=== PATIENT | female | born 1955 | race Caucasian/White ===

== ENCOUNTER 2016-12-23 10:14 | Emergency (ER) | payer BC ==
[2016-12-23 12:03] VITALS: BP 129/73
--- NOTE | 2016-12-23 12:15 | UC ---
Throat Pain/Nasal Jeff HPI - HPI Summary HPI Summary: sinus pressure, headache, nasal congestion, cough with yellow sputum, flecks of blood in sputum (which pt thinks are from her dry nose). No fever. Has seasonal allergies. No relief with netti pot. Sxs since 12/20/16 - History of Current Complaint Chief Complaint: UCRespiratory Stated Complaint: SINUS PRESSURE Time Seen by Provider: 12/23/16 12:14 Hx Obtained From: Patient Hx Last Menstrual Period: n/a Onset/Duration: Gradual Onset, Lasting Days, Still Present Severity: Moderate Pain Intensity: 1 Pain Scale Used: 0-10 Numeric Cough: Productive - yellow Associated Signs & Symptoms: Positive: Sinus Discomfort, Nasal Discharge, Rash - on nose and lip for 3 years, no change Related History: Seasonal Allergies - Epiglottits Risk Factors Epiglottis Risk Factors: Negative - Allergies/Home Medications Allergies/Adverse Reactions: Allergies Allergy/AdvReac Type Severity Reaction Status Date / Time No Known Allergies Allergy Verified 12/23/16 12:03 Home Medications: Home Medications Nystatin CREAM* 1 applic TOPICAL BID 12/23/16 [History Confirmed 12/23/16] metFORMIN* [Glucophage*] 500 mg PO DAILY 12/23/16 [History Confirmed 12/23/16] PMH/Surg Hx/FS Hx/Imm Hx Endocrine History Of: Reports: Diabetes Cardiovascular History Of: Denies: Cardiac Disorders Respiratory History Of: Denies: Asthma - Surgical History Surgical History: Yes Surgery Procedure, Year, and Place: hemorrhoidectomy 05/2012 - Family History Known Family History: Positive: Hypertension - Social History Occupation: Employed Full-time Lives: With Family Alcohol Use: None Substance Use Type: None Smoking Status (MU): Former Smoker Type: Cigarettes Amount Used/How Often: 2 CIGS A DAY Have You Smoked in the Last Year: No When Did the Patient Quit Smoking/Using Tobacco: OCT, 2014 Review of Systems Constitutional: Negative Skin: Rash - chronic Eyes: Negative ENT: Other - sinus pressure Respiratory: Cough Cardiovascular: Negative Gastrointestinal: Negative Genitourinary: Negative Motor: Negative Neurovascular: Negative Musculoskeletal: Negative Neurological: Negative Psychological: Negative All Other Systems Reviewed And Are Negative: Yes Physical Exam Triage Information Reviewed: Yes Appearance: Well-Nourished, Ill-Appearing, Pain Distress Vital Signs: Initial Vital Signs Temp 98.6 F 12/23/16 11:56 Pulse 78 01/22/17 11:56 Resp 16 12/23/16 11:56 BP 129/73 12/23/16 11:56 Pulse Ox 97 12/23/16 11:56 Vital Signs Reviewed: Yes Eyes: Positive: Conjunctiva Clear ENT: Positive: Pharyngeal erythema, TMs normal, Other: - nasal turbinate swelling bilat, sinus tenderness frontal and maxillary Neck: Positive: Supple, Nontender, No Lymphadenopathy Respiratory: Positive: Lungs clear, Normal breath sounds, No respiratory distress Cardiovascular: Positive: RRR, No Murmur, Pulses Normal, Brisk Capillary Refill Musculoskeletal: Positive: Strength Intact, ROM Intact Neurological: Positive: Alert, Muscle Tone Normal Psychological Exam: Normal Skin Exam: Normal Throat Pain/Nasal Course/Dx - Differential Dx/Diagnosis Differential Diagnosis/HQI/PQRI: Influenza, Pharyngitis, Sinusitis, URI Provider Diagnoses: sinusitis Discharge - Discharge Plan Condition: Stable Disposition: HOME Prescriptions: Amoxicillin/Clavulanate TAB* [Augmentin TAB 875*] 875 mg PO BID #20 tab Fluticasone NASAL SPRAY 50MCG* [Flonase NASAL SPRAY 50MCG*] 2 spray BOTH NARES DAILY #1 btl Patient Education Materials: Sinusitis (ED) Referrals: Markus Seo DO [Primary Care Provider] -
== END 2016-12-23 12:57 | disposition home or self-care (01) ==
LOC: UCCORT 10:14
DX: J32.9 Chronic sinusitis, unspecified (principal); E11.9 Type 2 diabetes mellitus without complications; Z79.84 Long term (current) use of oral hypoglycemic drugs; Z87.891 Personal history of nicotine dependence
CPT/HCPCS: 99212; G0463

== ENCOUNTER 2017-03-10 10:48 | Emergency (ER) | payer BC ==
[2017-03-10 13:23] VITALS: BP 115/87
--- NOTE | 2017-03-10 13:53 | UC ---
FLU HPI - HPI Summary HPI Summary: Pt presents with c/o of nasal congestion, dry hacking cough that began suddenly after exposure to "very perfumed" air 2 days ago. Pt reports that she has seasonal allergies but has not been taking her daily antihistamine. cough worsens with recumbent position, - History of Current Complaint Chief Complaint: UCRespiratory Stated Complaint: CONGESTION,COUGH Time Seen by Provider: 03/10/17 13:09 Hx Obtained From: Patient Hx Last Menstrual Period: n/a ?: No Onset/Duration: Sudden Onset, Lasting Days Severity Currently: Mild Severity Initially: Mild Associated Signs & Symptoms: Positive: Myalgia, Cough, Nasal Congestion - Allergy/Home Medications Allergies/Adverse Reactions: Allergies Allergy/AdvReac Type Severity Reaction Status Date / Time environmental Allergy Congestion Uncoded 03/10/17 13:23 Home Medications: Home Medications Chromium Picolinate 200 mcg PO QPM 03/10/17 [History Confirmed 03/10/17] PMH/Surg Hx/FS Hx/Imm Hx Previously Healthy: Yes Endocrine History Of: Reports: Diabetes - po meds Cardiovascular History Of: Denies: Cardiac Disorders Respiratory History Of: Denies: Asthma - Surgical History Surgical History: Yes Surgery Procedure, Year, and Place: hemorrhoidectomy 05/2012 - Family History Known Family History: Positive: Hypertension - Social History Lives: With Family Alcohol Use: None Substance Use Type: None Smoking Status (MU): Former Smoker Type: Cigarettes Amount Used/How Often: 2 CIGS A DAY Have You Smoked in the Last Year: No When Did the Patient Quit Smoking/Using Tobacco: OCT, 2014 Review of Systems Constitutional: Fatigue Skin: Negative Eyes: Negative ENT: Negative, Other - nasal congestion, PND Respiratory: Cough Cardiovascular: Negative Gastrointestinal: Negative Genitourinary: Negative Motor: Negative Neurovascular: Negative Musculoskeletal: Negative Neurological: Negative Psychological: Negative All Other Systems Reviewed And Are Negative: Yes Physical Exam Triage Information Reviewed: Yes Vital Signs: Initial Vital Signs Temp 99.3 F 03/10/17 13:17 Pulse 85 03/10/17 13:17 Resp 18 03/10/17 13:17 BP 115/87 03/10/17 13:17 Pulse Ox 98 03/10/17 13:17 Eye Exam: Normal ENT: Positive: TMs normal - bilateral, clear fluid Neck exam: Normal Respiratory Exam: Normal Respiratory: Positive: Other: - cough with deep inhalation Cardiovascular Exam: Normal Musculoskeletal Exam: Normal Neurological Exam: Normal Psychological Exam: Normal Skin Exam: Normal Flu Course/Dx - Differential Dx/Diagnosis Differential Diagnosis/HQI/PQRI: Bronchitis, Upper Respiratory Infection, Other - allergic rhinitis Provider Diagnoses: Allergic rhinitis Discharge - Discharge Plan Condition: Stable Disposition: HOME Prescriptions: predniSONE TAB* [Deltasone TAB*] 30 mg PO DAILY #9 tab Patient Education Materials: Allergic Rhinitis (ED) Referrals: Markus Seo DO [Primary Care Provider] - If Needed (Please follow up with your PCP or return to clinic as needed. )
== END 2017-03-10 14:02 | disposition home or self-care (01) ==
LOC: UCCORT 10:48
DX: J30.9 Allergic rhinitis, unspecified (principal); E11.9 Type 2 diabetes mellitus without complications; Z87.891 Personal history of nicotine dependence
CPT/HCPCS: 99212; G0463

== ENCOUNTER 2018-01-24 09:20 | Emergency (ER) | payer BC ==
[2018-01-24 10:40] VITALS: BP 156/79
--- NOTE | 2018-01-24 11:26 | UC ---
General HPI - HPI Summary HPI Summary: Pt here w/ general achiness x 1 week- has aches everywhere but legs have especially been an issues past few nights. Pain has improved w/ ibuprofen 400mg. She also had 1 bout of diarrhea w/o ab pain. Has had a good appetite and eating normal foods w/o difficulty (ie. pizza, etc). Denies fever, chills, nausea, vomiting, URI sx, [place], chest pain, SOB, skin changes, dizziness or balance issues. She also denies back pain, numbness, tingling, weakness and change in bladder or bowel issues. She describes her leg pain as achey "like growing pains" - worse in the AM - better after moving up and around. 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 No new activities or change in footwear to report. She reports she stopped her cymbalata 120mg daily last week, just before sx started. This was stopped along with intuniv. To replace these meds, she was started on sertraline 50mg daily and methylphenidate 10mg TID PRN. She feels more focused this week in re: to ADD even w/o methylphenidate. Also notes she took 10mg w/o increase in focus so tried a 2nd tab and this gave her heart "pings". Has not had this since. Of other note, she has been on a PPI for "years" and has not had nutrition labs checked as far as she knows. She also takes a statin and had myalgias in the past trying to find the right one. Furthermore, no h/o tick bites [place] Also takes metformin for DM which is well controlled. 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 - Hx Last Menstrual Period: n/a Pain Intensity: 3 - Allergy/Home Medications Allergies/Adverse Reactions: Allergies Allergy/AdvReac Type Severity Reaction Status Date / Time environmental Allergy Congestion Uncoded 01/24/18 10:32 Home Medications: Home Medications Ibuprofen [Advil] 400 mg PO 01/24/18 [History] Methylphenidate HCl [Ritalin LA] 10 mg PO 01/24/18 [History] Sertraline HCl [Zoloft] 50 mg PO 01/24/18 [History] PMH/Surg Hx/FS Hx/Imm Hx Previously Healthy: Yes Endocrine History: Diabetes - well controlled Other Cardiovascular History: no PVD or cardio issues GI/ History: Gastroesophageal Reflux Neurological History: Other Other Neurological History: no neuropathy issues Psychological History: Anxiety, Depression, Other Other Psychological History: ADD - Surgical History Surgical History: Yes Surgery Procedure, Year, and Place: hemorrhoidectomy 05/2012 - Family History Known Family History: Positive: Hypertension - Social History Occupation: Employed Full-time Lives: With Family Alcohol Use: None Substance Use Type: None Smoking Status (MU): Former Smoker Type: Cigarettes Amount Used/How Often: 2 CIGS A DAY Have You Smoked in the Last Year: No When Did the Patient Quit Smoking/Using Tobacco: OCT, 2014 Review of Systems Constitutional: Other - "body tired" but not wanting to sleep anymore than usual Skin: Negative Eyes: Negative ENT: Negative Respiratory: Negative Cardiovascular: Negative Gastrointestinal: Negative Genitourinary: Negative Motor: Negative Neurovascular: Negative Musculoskeletal: Arthralgia, Myalgia Neurological: Negative Psychological: Other - concerned but focus is better - no SI/HI Is Patient Immunocompromised?: No All Other Systems Reviewed And Are Negative: Yes Physical Exam Triage Information Reviewed: Yes Appearance: Well-Appearing, No Pain Distress, Well-Nourished Vital Signs: Initial Vital Signs Temp 99.3 F 01/24/18 10:25 Pulse 109 01/24/18 10:25 Resp 20 01/24/18 10:25 BP 156/79 01/24/18 10:25 Pulse Ox 98 01/24/18 10:25 Vital Signs Reviewed: Yes Eye Exam: Normal Eyes: Positive: Conjunctiva Clear ENT Exam: Normal ENT: Positive: Normal ENT inspection, Hearing grossly normal, Pharynx normal - mucosa moist, TMs normal. Negative: Pharyngeal erythema, Nasal congestion, Nasal drainage, Muffled voice Neck exam: Normal Neck: Positive: Supple, Nontender, No Lymphadenopathy Respiratory Exam: Normal Respiratory: Positive: Lungs clear, Normal breath sounds Cardiovascular Exam: Normal Cardiovascular: Positive: RRR, Pulses Normal, Other: - no LE edema Abdominal Exam: Normal Abdomen Description: Positive: Nontender, No Organomegaly, Soft. Negative: Pulsatile Mass Bowel Sounds: Positive: Present Musculoskeletal Exam: Normal Musculoskeletal: Positive: Strength Intact, ROM Intact, No Edema Neurological Exam: Normal Neurological: Positive: Alert, Muscle Tone Normal, Other: - (-) SLR - "aching" in hamstrings and calves w/ SLR - no pain in back or radiating into legs. Negative: Fatigued Psychological Exam: Normal Skin Exam: Normal Course/Dx - Course Course Of Treatment: Pt presents w/ general body aches and feeling "body tired" w/ leg soreness after stopping cymbalta 120mg daily and switching to sertraline 50mg daily. This transition in medication may be causing her sx. 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 Advised to f/u w/ PCP to continue to monitor these sx. Also encouraged further lab testing as needed for nutrition levels as she's been on a PPI for years, assess need for statin as this has caused myalgias in the past , and possiblty Lyme test d/t high prevelance in this area. She will f/u w/ PCP for these issues and go to ED if danger s/sx present. Does not appear to have an acute cardiovascular or neruological emergency today. - Differential Dx - Multi-Symptom Provider Diagnoses: Body aches. Seratonin withdrawal Discharge - Discharge Plan Condition: Stable Disposition: HOME Patient Education Materials: Musculoskeletal Pain (ED) Referrals: Susana Mcgraw MD [Primary Care Provider] - Additional Instructions: Your body aches and change in energy may be the result of switching from cymbalta 120mg daily and to sertraline 50mg daily. Follow-up with your PCP to continue to monitor these symptoms. NOTE: It is also encouraged that you seek further lab testing as needed for nutrition levels as you've been on a PPI for years. This can effect absorption of nutrients. You may implement lifestyle changes with PCP to address the root cause. If symptoms persist, you may also assess your need for statin with your PCP as this has caused myalgias in the past. Finally, consider a Lyme test if synptoms persist without a clear answer. You do not appear to have an acute cardiovascular or neruological emergency today. Should you develop abrupt headache, change in vision, chest pain, shortness of breath, acute abdominal pain, numbness, tingling, weakness or syncope, go to the ED.
== END 2018-01-24 11:48 | disposition home or self-care (01) ==
LOC: UCCORT 09:20
DX: M79.1 Myalgia (principal); F19.939 Other psychoactive substance use, unspecified with withdrawal, unspecified; F98.8 Other specified behavioral and emotional disorders with onset usually occurring in childhood and adolescence; F32.9 Major depressive disorder, single episode, unspecified; F41.9 Anxiety disorder, unspecified; E11.8 Type 2 diabetes mellitus with unspecified complications; K21.9 Gastro-esophageal reflux disease without esophagitis
CPT/HCPCS: 87502; 99211; G0463

== ENCOUNTER → 2019-09-15 | Day surgery (SDC) | payer BC ==
[~2019-09-15] MED LIST: Buffered Lidocaine 1% SYRIN* 1 ML/SYRINGE INTRADERM ONE; Lactated Ringers 1000 ML Bag* 1,000 ML IV SCH; Lidocaine 1% INJ* 10 MG/ML 30 ML SDV ONE; Midazolam* 1 MG/ML 2 ML VIAL (2 MG) ONE; Naloxone* 0.4 MG/ML 1 ML VIAL IV PRN; Propofol* 10 MG/ML 20 ML BTL ONE; fentaNYL* 50 MCG/ML 2 ML VIAL (100 MCG VIAL) ONE
[2019-09-15 10:52] VITALS: BP 133/76
--- NOTE | 2019-09-15 13:31 | OP ---
DATE OF OPERATION: 09/15/19 [facility] DATE OF : 53 SURGEON: Tere Garcia MD PLAYGROUND ATTENDANT: THERESA Saleem ANESTHESIA: Local MAC. PRE-OP DIAGNOSIS: Trigger fingers - right small and ring. POST-OP DIAGNOSIS: Trigger fingers - right small and ring. OPERATIVE PROCEDURE: Trigger finger releases of right small and ring fingers. ESTIMATED BLOOD LOSS: Zero. TOURNIQUET TIME: Approximately 10 minutes. INDICATIONS FOR PROCEDURE: Radha is a 63-year-old woman, who has painful locking and triggering of the ring and small fingers on her right hand. She presents for trigger finger releases. DESCRIPTION OF PROCEDURE: The patient was brought to the operating room, was given a sedation anesthetic and a local infiltration of 10 cc of 1% plain lidocaine. Skin of her right hand and forearm was prepped and draped in the usual sterile fashion. The hand and forearm were exsanguinated and the tourniquet elevated to 250 mmHg. A transverse incision was made centered over the A1 pulleys of the ring and small fingers on the right hand. We dissected through the subcutaneous tissue down to the A1 pulleys. The pulleys were incised longitudinally completely releasing the flexor tendons which were in good condition and had minimal tenosynovitis. The wound was irrigated and the skin edges were reapproximated with 4-0 nylon suture. The wound was dressed with Xeroform, 4x4, Webril, and an Rob wrap. The patient tolerated the procedure well and was brought to the recovery room in good condition. [id number]/CPS #: [id number] MTDD
== END | disposition home or self-care (01) ==
LOC: OREAST 08:16
PROVIDERS: ATTEND Orthopaedic Surgery
DX: M65.341 Trigger finger, right ring finger (principal); M65.351 Trigger finger, right little finger; E11.9 Type 2 diabetes mellitus without complications; Z79.84 Long term (current) use of oral hypoglycemic drugs; F41.8 Other specified anxiety disorders; Z87.891 Personal history of nicotine dependence; F90.9 Attention-deficit hyperactivity disorder, unspecified type; R91.8 Other nonspecific abnormal finding of lung field
CPT/HCPCS: J2250; J2704; J3010